=== PATIENT | male | born 1955 | race Caucasian/White ===

== ENCOUNTER 2024-03-06 08:29 | Day surgery (SDC) | payer MEDICARE, OTHER ==
[~2024-03-06] VITALS: Ht 175.3 cm; Wt 125.4 kg
[~2024-03-06 08:29] MED LIST: ALBU90OI INH; ALBU90OI6 INH; ASPI81CH PO; CARV6.25 PO; FLUT220OIA IH; HYDACE5 PO; Hydrochlorothia25 MG PO; IBUP600 PO; Lactated Ringer's 1,000 ML IV ONE; MONT10T PO; NAPR500 PO; Norco 5-325 Ta1 EACH PO; Omeprazole20 M1 PO; RAMI5 PO; Ramipril10 MG PO; SPIHYD PO; TAMS.4ER PO; VITAMIN D35000 UNI1 PO
[2024-03-06] MEDS ORDERED: Lidocaine HCl 4% 5 ML SDA ONE (09:21)
[2024-03-06] MEDS ORDERED: Lactated Ringer's 1,000 ML IV ONE (09:22)
[2024-03-06] MEDS ORDERED: Ipratropium/Albuterol SulF 2.5-0.5MG/3 ML Amp ONE (09:38)
--- NOTE | 2024-03-06 09:48 | NUR ---
03/06/24 09[address] CHILEL, LIDOCAINE 4% (200MG/5ML) PULLED FROM PYXIS AND PLACED AT BEDSIDE DR CHILEL WILL ADMINISTER LIDOCAINE TO BACK OF THROAT PRIOR TO UPPER ENDOSCOPY.
[2024-03-06] MEDS ORDERED: propofoL 50 ML IV ONE ×2 (10:03→10:30)
[2024-03-06 11:32] VITALS: BP 153/78
== END 2024-03-06 11:22 | disposition home or self-care (01) ==
LOC: ORSCSDS 08:29
PROVIDERS: Specialist
PROC: 0DJ08ZZ Inspection of Upper Intestinal Tract, Via Natural or Artificial Opening Endoscopic (ICD-10-PCS; principal; 2024-03-06 10:00)
PROC: 0DBK8ZX Excision of Ascending Colon, Via Natural or Artificial Opening Endoscopic, Diagnostic (ICD-10-PCS; principal; 2024-03-06 10:00)
DX: Z12.11 Encounter for screening for malignant neoplasm of colon (principal); Z86.010 Personal history of colon polyps; D12.2 Benign neoplasm of ascending colon; R13.14 Dysphagia, pharyngoesophageal phase; K44.9 Diaphragmatic hernia without obstruction or gangrene; K64.8 Other hemorrhoids; I10 Essential (primary) hypertension; J44.9 Chronic obstructive pulmonary disease, unspecified; Z79.899 Other long term (current) drug therapy; E66.01 Morbid (severe) obesity due to excess calories; Z68.41 Body mass index [BMI] 40.0-44.9, adult
CPT/HCPCS: 88305; J2001; J2704; J7120

== ENCOUNTER 2024-06-29 11:15 | Day surgery (SDC) | payer MEDICARE, OTHER ==
[~2024-06-29] VITALS: Ht 175.3 cm; Wt 126.4 kg
[2024-06-29] MEDS ORDERED: METF500 (12:49)
[2024-06-29] MEDS ORDERED: ALBU2.5V5 (12:50)
[2024-06-29] MEDS ORDERED: ASPI81CH (12:51)
[2024-06-29] MEDS ORDERED: propofoL 50 ML IV ONE (14:04)
[2024-06-29] MEDS ORDERED: FentaNYL Citrate 50 MCG/ML 2 ML Injection ONE (14:04)
[2024-06-29] MEDS ORDERED: Lactated Ringer's 1,000 ML IV ONE (14:05)
--- NOTE | 2024-06-29 14:13 | NUR ---
06/29/24 1413 Tamika Orantes PT. DENIES ANY PAIN. NOTIFIED THAT PT. HAD EXPIRATORY WHEEZES POSTERIORLY, NO ORDERS GIVEN.
[2024-06-29] MEDS ORDERED: Ipratropium/Albuterol SulF 2.5-0.5MG/3 ML Amp ONE (14:32)
[2024-06-29 14:44] VITALS: BP 148/83
== END 2024-06-29 14:56 | disposition home or self-care (01) ==
LOC: ORSCSDS 11:15
PROVIDERS: Specialist
PROC: 0DB58ZX Excision of Esophagus, Via Natural or Artificial Opening Endoscopic, Diagnostic (ICD-10-PCS; principal; 2024-06-29 13:30)
DX: R13.10 Dysphagia, unspecified (principal); K20.90 Esophagitis, unspecified without bleeding; I10 Essential (primary) hypertension; J44.9 Chronic obstructive pulmonary disease, unspecified; E11.9 Type 2 diabetes mellitus without complications; K44.9 Diaphragmatic hernia without obstruction or gangrene; E66.9 Obesity, unspecified; Z68.41 Body mass index [BMI] 40.0-44.9, adult; Z79.84 Long term (current) use of oral hypoglycemic drugs; Z79.899 Other long term (current) drug therapy
CPT/HCPCS: 82947; 88305; 88312; J2704; J3010; J7120

== ENCOUNTER 2024-10-11 13:11 | Day surgery (SDC) | payer MEDICARE, OTHER ==
[~2024-10-11] VITALS: Ht 175.3 cm; Wt 125.3 kg
[~2024-10-11 13:11] MED LIST changes: +ALBU2.5V5; +ASPI81CH; +Atropine Sulfate 0.1 MG/ML 10ML SYR ONE; +Glycopyrrolate 0.2 MG/ML 1MLVIAL ONE; +Lidocaine 2% 5 ML SDV ONE; +Lidocaine HCl/Pf 1% 5 ML VIAL ONE; +METF500; +Ondansetron HCl 2 MG / ML 2ML Vial ONE; +ePHEDrine Sulfate 50 MG/ML 1ML Injection ONE
[2024-10-11] MEDS ORDERED: OMEP20ER (13:47)
[2024-10-11] MEDS ORDERED: Lactated Ringer's 1,000 ML IV ONE (14:22)
[2024-10-11] MEDS ORDERED: Ipratropium/Albuterol SulF 2.5-0.5MG/3 ML Amp ONE (14:49)
[2024-10-11] MEDS ORDERED: propofoL 50 ML IV ONE (15:00)
[2024-10-11 15:42] VITALS: BP 152/84
--- NOTE | 2024-10-11 15:55 | NUR ---
10/11/24 1555 GALLO FROST PT WAITING FOR FRIEND MINISTERIO TO COME PICK HIM UP.
== END 2024-10-11 15:54 | disposition home or self-care (01) ==
LOC: ORSCSDS 13:11
PROVIDERS: Specialist
PROC: 0DB58ZX Excision of Esophagus, Via Natural or Artificial Opening Endoscopic, Diagnostic (ICD-10-PCS; principal; 2024-10-11 15:00)
DX: K20.90 Esophagitis, unspecified without bleeding (principal); Z87.11 Personal history of peptic ulcer disease; I10 Essential (primary) hypertension; J44.9 Chronic obstructive pulmonary disease, unspecified; K44.9 Diaphragmatic hernia without obstruction or gangrene; E11.9 Type 2 diabetes mellitus without complications; E66.9 Obesity, unspecified; Z68.41 Body mass index [BMI] 40.0-44.9, adult; Z79.82 Long term (current) use of aspirin; Z79.84 Long term (current) use of oral hypoglycemic drugs; Z79.899 Other long term (current) drug therapy
CPT/HCPCS: 82947; 88305; J0461; J2003; J2405; J2704; J7120